=== PATIENT | female | born 1985 | race American Indian/Alaskan Native ===

== ENCOUNTER 2018-03-10 15:38 | Emergency (ER) | payer MEDICAID ==
[2018-03-10 15:41] VITALS: BMI 27.7
[2018-03-10 17:44] VITALS: BP 125/83; PULSE 87; RESP 19; TEMP 98.5; O2SAT 100
[2018-03-10] MEDS ORDERED: Sodium Chloride 0.9% 500 ML IV STA (18:15)
[2018-03-10 18:23] LABS: BASO # 0.02 K/mm3 (0.0-2.0); BASO % 0.2 % (0.0-3.0); EOS # 0.2 (0.0-0.7); EOS % 1.5 % (1.5-5.0); GRAN # 9.21 (1.4-6.5); GRAN % 83.5 % (50.0-68.0); HEMOGLOBIN 10.2 g/dL (12.0-16.0); LYMPH # 0.8 (1.2-3.4); LYMPH % 6.8 % (22.0-35.0); MEAN CORPUSCULAR HEMOGLOBIN 29.4 pg (25.0-35.0); MEAN CORPUSCULAR HGB CONC 33.8 g/dl (31.0-37.0); MEAN PLATELET VOLUME 10.7 fl (7.0-11.0); MONO # 0.9 (0.1-0.6); RBC 3.47 10^6/uL (3.5-6.1)
[2018-03-10 18:28] LABS: URINE BILIRUBIN NEGATIVE (NEGATIVE); URINE BLOOD NEGATIVE (NEGATIVE); URINE GLUCOSE (UA) NEGATIVE (NEGATIVE); URINE LEUKOCYTE ESTERASE TRACE Leu/uL (NEGATIVE); URINE PROTEIN NEGATIVE mg/dL (<30 mg/dL)
[2018-03-10 18:30] LABS: URINE COLOR YELLOW (YELLOW)
[2018-03-10 18:40] LABS: ALBUMIN 3.7 g/dL (3.0-4.8); ALT/SGPT 26 U/L (7-56); AST/SGOT 26 U/L (14-36); BLOOD UREA NITROGEN 4 mg/dL (7-21); CALCIUM 8.9 mg/dL (8.4-10.5); GFR NON-AFRICAN AMERICAN > 60
[2018-03-10 18:43] LABS: URINE APPEARANCE SL CLOUDY (CLEAR); URINE BACTERIA MANY (NEG); URINE RBC NEGATIVE /hpf (0-2)
--- NOTE | 2018-03-10 19:05 | ED PDOC ---
Arrival/HPI - General Chief Complaint: Flu-like Symptoms Time Seen by Provider: 03/10/18 17:10 Historian: Patient - History of Present Illness Narrative History of Present Illness (Text): 03/10/18 19:10 32-year-old female 27 weeks presents today with with a 4 day history of nasal congestion sore throat ear pain and occasional cough. Patient denies fevers or chills at home. Patient states she has a frontal headache. Patient denies abdominal pain. Complaining of nausea no vomiting. Patient states she has had a urinary tract infection for the past 4 weeks for which she's been on 2 different antibiotics without resolution. 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 Patient states she did not take her blood pressure today because she knew it would be high because she had a headache. Past Medical History - Provider Review Nursing Documentation Reviewed: Yes - Travel History Have you recently traveled outside [place] w/in the past 3 mons?: No - Infectious Disease Hx of Infectious Diseases: None - Tetanus Immunization Tetanus Immunization: Unknown - Reproductive Menopause: No - Cardiac Hx Hypertension: Yes (eclampsia.) - Pulmonary Hx Asthma: Yes (recently dx) - Neurological Hx Migraine: Yes Hx Seizures: No - HEENT Hx HEENT Disorder: No - Renal Hx Renal Disorder: No - Endocrine/Metabolic Hx Endocrine Disorders: No - Hematological/Oncological Hx Cancer: No - Integumentary Hx Dermatological Disorder: No - Musculoskeletal/Rheumatological Hx Falls: No - Gastrointestinal Hx Gastrointestinal Disorders: No - Genitourinary/Gynecological Hx Sexually Transmitted Diseases: No - Psychiatric Hx Anxiety: No Hx Depression: No Hx Substance Use: No - Surgical History Hx Inguinal Hernia Repair: Yes (when she was 1 yrs old) - Anesthesia Hx Anesthesia: Yes Hx Anesthesia Reactions: No - Suicidal Assessment Feels Threatened In Home Enviroment: No Family/Social History - Physician Review Nursing Documentation Reviewed: Yes Family/Social History: Unknown Family HX Smoking Status: Light Smoker < 10 Cigarettes Daily Hx Alcohol Use: Yes Hx Substance Use: No Hx Substance Use Treatment: No Allergies/Home Meds Allergies/Adverse Reactions: Allergies azithromycin [From Zithromax] Allergy (Verified 03/10/18 17:07) RASH ketorolac tromethamine [From Toradol] Allergy (Verified 03/10/18 17:07) RASH tramadol Allergy (Verified 03/10/18 17:09) RASH Home Medications: Home Meds Medication Instructions Recorded Confirmed Labetalol [Trandate] 200 mg PO BID 03/10/18 03/10/18 Metoprolol Tartrate [Lopressor] 50 mg PO BID 03/10/18 03/10/18 Review of Systems - Review of Systems Constitutional: absent: Fatigue, Fevers ENT: Sore Throat, Sinus Congestion Respiratory: Cough Cardiovascular: absent: Chest Pain Gastrointestinal: Nausea. absent: Abdominal Pain, Constipation, Diarrhea, Vomiting Genitourinary Female: absent: Dysuria, Frequency, Hematuria Musculoskeletal: absent: Arthralgias, Back Pain, Neck Pain Skin: absent: Rash, Pruritis Neurological: Headache. absent: Dizziness Psychiatric: absent: Anxiety, Depression Physical Exam Vital Signs Reviewed: Yes Vital Signs Temp Pulse Resp BP Pulse Ox 03/10/18 17:41 98.5 F 87 19 125/83 100 03/10/18 16:30 99 F 92 H 20 149/99 H 97 Temperature: Afebrile Blood Pressure: Normal Pulse: Regular Respiratory Rate: Normal Appearance: Positive for: Well-Appearing, Non-Toxic, Comfortable Pain Distress: None Mental Status: Positive for: Alert and Oriented X 3 - Systems Exam Head: Present: Atraumatic Pupils: Present: PERRL Extroacular Muscles: Present: EOMI Conjunctiva: Present: Normal Ears: Present: Normal, NORMAL TM Mouth: Present: Moist Mucous Membranes, Normal Lips, Normal Tounge. No: Drooling, Trismus Pharnyx: Present: Normal. No: ERYTHEMA, EXUDATE, TONSILS ENLARGED, Peritonsilar Swelling, Uvular Deviation, Muffled/Hoarse Voice Nose (External): Present: Atraumatic Neck: Present: Normal Range of Motion, Trachea Midline. No: Lymphadenopathy Respiratory/Chest: Present: Clear to Auscultation, Good Air Exchange. No: Respiratory Distress, Accessory Muscle Use Cardiovascular: Present: Regular Rate and Rhythm, Normal S1, S2. No: Murmurs Abdomen: No: Tenderness Lower Extremity: No: Edema Neurological: Present: GCS=15, Speech Normal Skin: Present: Warm, Dry, Normal Color. No: Rashes Psychiatric: Present: Alert, Oriented x 3 Medical Decision Making ED Course and Treatment: 09/19/18 20:28 32-year-old female who is 27 weeks presenting with URI symptoms 4 days Patient with elevated blood pressure in the ER CBC within normal limits CMP within normal limits Urinalysis: No protein in the urine. Positive leukocytes positive white blood cells and positive bacteria Rapid strep is negative Patient was given Tylenol for pain Patient reassessment: Patient's headache has completely resolved blood pressure is within normal limits for . Advised the patient that we will follow-up with the throat culture. Centor score of Zero will treat patient with keflex for UTI. urine culture pending. I advised follow-up with the retrimmer within the next 2 days. Advised taking Keflex twice daily 7 days for urinary tract infection. I've advised closely monitoring blood pressure. I've advised immediate return if symptoms worsen persist or if new concerning symptoms develop Patient verbalizes understanding of discharge instructions and need for immediate followup. all aspects of this case were discussed the attending of record. Impression: Pharyngitis, UTI increase fluids keflex; 1 capsule twice daily x 7 days. tylenol every 4 hours as needed for pain follow up with the PASSENGER BARGE MASTER within the next 2 days. return immediately if symptoms worsen,persist or if new symptoms develop. - Lab Interpretations Lab Results: 03/10/18 18:12 03/10/18 18:12 Lab Results 03/10/18 18:12: WBC 11.0 D, RBC 3.47 L, Hgb 10.2 L, Hct 30.2 L, MCV 87.0, MCH 29.4, MCHC 33.8, RDW 13.0, Plt Count 246, MPV 10.7, Gran % 83.5 H, Lymph % (Auto ) 6.8 L, [place] % (Auto) 8.0 H, Eos % (Auto) 1.5, Baso % (Auto) 0.2, Gran # 9.21 H , Lymph # (Auto) 0.8 L, [place] # (Auto) 0.9 H, Eos # (Auto) 0.2, Baso # (Auto) 0.02 03/10/18 18:12: Sodium 136, Potassium 4.1, Chloride 104, Carbon Dioxide 23, Anion Gap 14, BUN 4 L, Creatinine 0.7, Est GFR ( Amer) > 60, Est GFR (Non -Af Amer) > 60, Random Glucose 79, Calcium 8.9, Magnesium 1.8, Total Bilirubin 0.5, AST 26, ALT 26, Alkaline Phosphatase 155 H, Total Protein 7.4, Albumin 3.7 , Globulin 3.7, Albumin/Globulin Ratio 1.0 L 03/10/18 18:12: Urine Color Yellow, Urine Appearance Sl cloudy, Urine pH 7.0, Ur Specific [place] 1.015, Urine Protein Negative, Urine Glucose (UA) Negative, Urine Ketones 15 H, Urine Blood Negative, Urine Nitrate Negative, Urine Bilirubin Negative, Urine Urobilinogen 1.0 H, Ur Leukocyte Esterase Trace H, Urine RBC Negative, Urine WBC 10 - 15, Ur Epithelial Cells 10 - 12, Urine Bacteria Many 03/10/18 18:12: Grp A Beta Strep Ag Negative - Medication Orders Current Medication Orders: Discontinued Medications Acetaminophen (Tylenol 325mg Tab) 975 mg PO STAT STA Stop: 03/10/18 17:20 Last Admin: 03/10/18 17:47 Dose: 975 mg MAR Pain/Vitals Document 03/10/18 17:47 OCS (Rec: 03/10/18 17:48 OCS [id number]) Pain Reassessment Is This A Pain ReAssessment? No Sleep Is patient sleeping during reassessment? No Presence of Pain Presence of Pain Yes Pain Scale Used Pain Scale Used Numeric Location Pain Location Body Recreational Facilities Motel Manager Description Constant Intensity 10 Scale Used Numeric Pain Behavior Irritability Facial Grimacing Aggravating Factors ADL's Cephalexin Monohydrate (Keflex) 500 mg PO STAT STA PRN Reason: Protocol Stop: 03/10/18 19:04 Last Admin: 03/10/18 19:11 Dose: 500 mg Disposition/Present on Arrival - Present on Arrival Any Indicators Present on Arrival: No History of DVT/PE: No History of Uncontrolled Diabetes: No Urinary Catheter: No History of Decub. Ulcer: No History Surgical Site Infection Following: None - Disposition Have Diagnosis and Disposition been Completed?: Yes Diagnosis: UTI (urinary tract infection), Sore throat Disposition: HOME/ ROUTINE Disposition Time: 19:02 Patient Plan: Discharge Patient Problems: Current Active Problems Problem Status Onset Sore throat Acute UTI (urinary tract infection) Acute Condition: GOOD Discharge Instructions (ExitCare): Urinary Tract Infections in Adults, Viral Pharyngitis (DC) Additional Instructions: increase fluids keflex; 1 capsule twice daily x 7 days. tylenol every 4 hours as needed for pain follow up with the PASSENGER BARGE MASTER within the next 2 days. return immediately if symptoms worsen,persist or if new symptoms develop. Prescriptions: Cephalexin [Keflex] 500 mg PO BID #14 capsule Referrals: Belen Caldera MD [Primary Care Provider] - Follow up with primary Forms: avox ([place])
== END 2018-03-10 19:11 | disposition home or self-care (01) ==
LOC: ED 15:38
DX: J02.9 Acute pharyngitis, unspecified (principal); N39.0 Urinary tract infection, site not specified; F17.210 Nicotine dependence, cigarettes, uncomplicated